=== PATIENT | male | born 1975 | race Caucasian/White ===

== ENCOUNTER 2024-02-25 21:25 | Emergency (ER) | payer OTHER, SELFPAY ==
[2024-02-25 21:31] VITALS: BP 160/92; BMI 28.1
[2024-02-25 21:35] VITALS: BP 160/92
[2024-02-25 22:08] LABS: % Basophils 0.7 % (0-2); % Eosinophils 1.9 % (0-6); % Immature Granulocytes 0.2 % (0-0.5); % Lymphocytes 37.6 % (20.5-51.1); % Neutrophils 46.6 % (42.2-75.2); Absolute Basophils 0.1 10^3/uL (0-0.2); Absolute Eosinophils 0.2 10^3/uL (0-0.7); Absolute Lymphocytes 3.4 10^3/uL (1.2-3.4); Absolute Monocytes 1.2 10^3/uL (0.1-0.6); Absolute Neutrophils 4.3 10^3/uL (1.4-6.5); Hematocrit 46.4 % (39.0-52.0); Hemoglobin 16.8 g/dL (13.0-18.0); Mean Corp Hgb Conc. 36.2 g/dL (33.0-37.0); Mean Corpuscular Hgb 31.1 pg (27.0-31.0); Mean Corpuscular Volume 85.9 fL (80.0-94.0); Mean Platelet Volume 11.9 fL (7.4-10.4); Nucleated Red Blood Cells % 0 % (-); Platelet Count 198 10^3/uL (130-400); Red Cell Dist. Width 12.2 % (11.5-14.5); White Blood Cell Count 9.1 10^3/uL (4.8-10.8)
--- NOTE | 2024-02-25 22:17 | ED.GENMED ---
History of Present Illness
General
Chief Complaint: Chest Pain
Source: patient
Exam Limitations: none
Time Seen by Provider: 02/25/24 21:56
Nursing documentation reviewed up to this point in time: agreed with
History of Present Illness
History of Present Illness:
The patient is a 48-year-old man who reports intermittent central chest pain and mid upper abdominal pain. He reports he has had it for several days. His felt it may be correlated to eating, however, patient was not sure. He reports that the
pain he is experiencing now is fairly severe and has been going on for about 3 hours. He denies nausea and vomiting. He denies shortness of breath. He denies any radiation of pain into his back.
Past History
Past History
ED Past Medical History: None
ED Past Surgical History: Other (Reeds teeth)
Social History
Tobacco: Non-smoker
Alcohol: None
Drug: None
Personal:
Living: with family
Employment: Other
Family History
Family History: Other
Review of Systems
Review of Systems
Allergies reviewed?: Yes
All Other Systems: ROS reviewed and negative except as documented in HPI and ROS
Constitutional: Reports no symptoms
EENT: Reports no symptoms
Respiratory: Reports no symptoms
Cardiac: Reports chest pain
ABD/GI: Reports abdominal pain
: Reports no symptoms
Musculoskeletal: Reports no symptoms
Skin: Reports no symptoms
Neurological: Reports no symptoms
Endocrine: Reports no symptoms
Hematologic/Lymphatic: Reports no symptoms
Psychiatric: Reports no symptoms
Phy Exam
Physical Exam
Physical Exam:
Physical Exam
General: Patient appears anxious and uncomfortable
Neck: supple. no meningeal signs. normal psoterior pharynx
Heart: s1/s2 regular rate and rhythm, no murmur. equal radial pulses.
Lungs: no acute respiratory distress. clear bilaterally
Abdomen: normal bowel sounds. not tender. no CVAT, no pulsatile mass.
Neuro: alert and oriented. no focal neurological deficits
Skin: no rash
Psychiatric: well kept. interactive and cooperative
Extremities: no edema. no calf tenderness. negative homans. good distal pulses
Scores
Heart Score for Chest Pain Patients
STEMI patient?: No
History: Moderately Suspicious
ECG: Normal
Age: >45 - <65 years
Risk Factors: No Risk Factors
Troponin: </= Normal Limit
Heart Score for Chest Pain Patients: 2
Heart Score Risk: 2.5% MACE over next 6 weeks
Course
Orders/Labs/Results
Orders:
Orders
02/25/24 21:25
ECG [Electrocardiogram (*1)] Urgent
Reason for Study: Chest Pain
02/25/24 21:26
EKG- Treatment ONCE
02/25/24 21:34
Cardiac Monitoring- Treatment ONCE
IV Insert/Care/Rem.- Treatment PRN
O2 Therapy [RESP] Urgent
Titrate/Wean O2 to maintain O2 sat greater than (%): 90
Special Instructions: Maintain sats >/=90%
Pulse Ox/spot Check [RESP] Urgent
Quantity: 1
Special Instructions: ON ROOM AIR
02/25/24 21:49
Complete Blood Count/With Diff Urgent
Comprehensive Metabolic Panel Urgent
Lipase Urgent
Troponin I Urgent
02/25/24 22:16
Morphine Sulfate 4 mg IV NOW STA
02/25/24 22:17
Electrocardiogram (*1) Urgent
Reason for Study: Chest Pain
EKG- Treatment ONCE
Ondansetron Injectable [Zofran] 4 mg IV NOW STA
02/25/24 22:36
CT Chest/abd/pelvis Angio W/wo Urgent
Comment:
Reason For Exam: severe chest pain and upper ab pain
02/25/24 23:34
Troponin I Urgent
02/26/24 00:42
Sucralfate Suspension [Carafate Suspension] 1 gm PO NOW STA
Abnormal Lab Results
02/25/24
21:49
MCH 31.1 H pg
(27.0-31.0)
MPV 11.9 H fL
(7.4-10.4)
Absolute Monos (auto) 1.2 H 10^3/uL
(0.1-0.6)
Monocytes % 13.0 H %
(1.7-9.3)
Potassium 3.4 L mmol/L
(3.5-5.1)
Glucose 128 H mg/dl
(70-99)
02/25/24 21:49
02/25/24 21:49
Vital Signs
Initial and Last Documented VS:
Initial Vital Signs
Temp Pulse Resp BP Pulse Ox
98.1 F 58 16 160/92 99
02/25/24 21:31 02/25/24 21:31 02/25/24 21:31 02/25/24 21:31 02/25/24 21:31
Last Documented Vital Signs
Temp Pulse Resp BP Pulse Ox
98.1 F 64 16 140/87 100
02/25/24 21:31 02/25/24 22:25 02/25/24 22:25 02/25/24 22:24 02/25/24 22:25
MDM/Problems Addressed
Differential Diagnosis Includes:
Acute coronary syndrome, acute cholecystitis, biliary colic, acute pancreatitis, GERD
MDM/Problems Addressed:
Patient presents with acute chest pain and epigastric pain
Acute Exacerbation and/or Progression of Chronic Illness:
Patient is acutely hypertensive, however, he is also uncomfortable and anxious
Acute Exacerbation and/or Progression of Chronic Illness: HTN
*Radiology
Radiology exam reviewed: radiology read reviewed
*Pulse Oximetry
Patient hypoxic: no
*EKG
Interpreted by ED Provider?: Yes
Interpretation: normal
Comparison EKG: changes noted
Rate: bradycardiac
Rhythm: sinus
[place]: normal axis
Interval: normal interval
QRS Pattern: normal QRS
Ischemia: no ischemia
*Field Handyman Interpretation
Rate: normal
Interpretation: normal
Rhythm: sinus
*Critical Care Note
Total Time (30-74mins, 75-104mins- exclusive of procedures): Not Applicable
Data Reviewed
Review of Other/Old Records Reveals: Discharge Summary (Patient discharged and reviewed from hospitalist from 2020 when patient was admitted for shortness of breath and hypoxia from a COVID infection)
Source: patient and spouse
Update Note
Update Note:
10:29 PM second EKG done. Appears unchanged. Normal sinus rhythm. Normal axis. Normal ST segments
12:30 AM patient looks more comfortable and feels better. EKGs are nonischemic and both troponins are negative. CT shows no sign of PE or aortic dissection. Symptoms may be related to gastritis/GERD. He has no specific right upper abdominal pain
to suggest biliary colic and CT shows no evidence of abnormal gallbladder. Patient encouraged to follow-up with his primary care doctor within 1 week and to start Prevacid daily
ED Attending Note
-
Portions of this chart may have been created with voice recognition software.� Occasional wrong word or��sound alike� substitutions may have occurred due to the inherent limitations of voice recognition software.
Discharge Plan
Departure
Patient Disposition: Home (Routine Discharge)
Date of Disposition: 02/26/24
Time of Disposition: 00:41
Patient with high blood pressure during this ER visit?: Yes
Condition: Good
Covid-19: Not Applicable
Discharge Problem:
Chest pain in adult, GERD (gastroesophageal reflux disease)
Instructions: Acid reflux and GERD in adults, Chest Pain PCP Follow Up
Prescriptions:
New
lansoprazole [Prevacid] 30 mg capsule,delayed release(DR/EC)
30 mg PO DAILY Qty: 14 0RF
Rx Instructions:
Use in the morning for 14 days straight before breakfast
No Action
dexamethasone [Decadron] 6 MG tablet
6 mg PO DAILY 7 Days Qty: 7 0RF
Aspirin [[place]] 81 MG Capsule
81 mg PO DAILY 30 Days Qty: 30 0RF
albuterol sulfate 1 PUFF HFA aerosol inhaler
2 puff inhalation R Q4HPRN PRN (Reason: as needed for SOB) Qty: 1 0RF
Referrals:
Jg Pelaez DO [Family Provider] -
Interventions
Interventions:
*General Assessment Last Done: 02/25/24 21:31
*Neglect/Abuse Screening Last Done: 02/25/24 21:31
ED- Fall Risk Assessment Last Done: 02/25/24 22:25
*ED COVID-19 Vaccine History Last Done: 02/25/24 21:31
ED- Cardiac Assessment Last Done: 02/25/24 22:25
Discharge Date and Time
Print Language: AFGHAN
[2024-02-25 22:19] LABS: ALT (SGPT) 46 U/L (0-50); AST (SGOT) 35 U/L (17-59); Albumin 4.7 g/dl (3.5-5.0); Alkaline Phosphatase 49 U/L (38-126); Blood Urea Nitrogen 15 mg/dl (9-20); Calcium 9.5 mg/dl (8.4-10.2); Carbon Dioxide 25 mmol/L (22-30); Chloride 103 mmol/L (98-107); Estimated Creatinine Clearance 110 ml/min; Glucose 128 mg/dl (70-99); Lipase 235 U/L (23-300); Potassium 3.4 mmol/L (3.5-5.1); Sodium 139 mmol/L (135-145); Total Bilirubin 0.8 mg/dl (0.2-1.3); Total Protein 7.5 g/dl (6.3-8.2); eGFR > 60.00
[2024-02-25 22:24] VITALS: BP 140/87
[2024-02-25 22:24] LABS: Troponin I < 0.012 ng/ml
[2024-02-25] MEDS: MORPHINE SULFATE 4 MG IV (22:25)
[2024-02-25] MEDS: ZOFRAN 4 MG IV (22:25)
[2024-02-25 23:00] VITALS: BP 133/89
[2024-02-26] VITALS: BP 138/87
[2024-02-26 00:28] LABS: Troponin I < 0.012 ng/ml
[2024-02-26] MEDS: CARAFATE SUSPENSION 1 GM PO (00:52)
== END 2024-02-26 01:14 | disposition home or self-care (01) ==
LOC: EMR 21:25
PROVIDERS: EMERGENCY PHYSICIAN Emergency Medicine; FAMILY PHYSICIAN Family Medicine
DX: R07.89 Other chest pain (principal); K21.9 Gastro-esophageal reflux disease without esophagitis; R10.10 Upper abdominal pain, unspecified; I24.9 Acute ischemic heart disease, unspecified
CPT/HCPCS: 99284; 96374; 96375; 71275; 74174; 80053; 83690; 84484; 85025; 93005; Q9967